=== PATIENT | female | born 1980 | race Caucasian/White ===

== ENCOUNTER 2020-10-12 08:48 | Emergency (ER) | payer OTHER ==
[2020-10-12 08:53] VITALS: BMI 26.7
[2020-10-12 11:50] LABS: BASO % 0.4 % (0-2.0); EOS % 0.7 % (0-4.5); LYMPH % 22.1 % (8-40); MCH 29.5 pg (25.7-33.7); MCHC 33.2 g/dl (32.0-36.0); MEAN CELL VOLUME 88.8 fl (80-96); MEAN PLT VOLUME 9.8 fl (7.5-11.1); MONO % 14.8 % (3.8-10.2); PLATELET COUNT 310 K/MM3 (134-434); RBC 4.05 M/mm3 (3.60-5.2); WHITE BLOOD COUNT 8.7 K/mm3 (4.0-10.0)
[2020-10-12 11:56] LABS: INR 1.08 (0.83-1.09); PROTHROMBIN TIME (PATIENT) 13.3 SEC (9.7-13.0)
[2020-10-12 11:58] LABS: ACTIVATED PTT 28.3 SECONDS (25.2-36.5)
[2020-10-12 12:16] LABS: CHLORIDE 104 mmol/L (98-107); SODIUM 137 mmol/L (136-145)
[2020-10-12 12:18] LABS: CALCIUM 9.1 mg/dL (8.5-10.1)
[2020-10-12 12:19] LABS: ALBUMIN 3.5 g/dl (3.4-5.0); BLOOD UREA NITROGEN 7.7 mg/dL (7-18); CO2 27 mmol/L (21-32); GLUCOSE,RANDOM 86 mg/dL (74-106); MAGNESIUM 2.1 mg/dL (1.8-2.4)
[2020-10-12 12:22] LABS: CREATININE 0.7 mg/dL (0.55-1.3); SGOT/AST 40 U/L (15-37); SGPT/ALT 21 U/L (13-61)
[2020-10-12 12:23] LABS: BILIRUBIN,TOTAL 0.7 mg/dL (0.2-1); TOT PROT 7.5 g/dl (6.4-8.2)
[2020-10-12 12:25] LABS: ALK PHOS 61 U/L (45-117)
[2020-10-12 12:27] LABS: N-TERMINAL BNP 8.7 pg/ml (5-125)
[2020-10-12 12:33] LABS: ANION GAP 6 MMOL/L (8-16)
[2020-10-12 15:51] LABS: LIPASE 40 U/L (73-393)
[2020-10-12] MEDS ORDERED: DEXAMETHASONE SOD PHOSPHATE 10 MG/1 ML VIAL IVPUSH ONE (15:54)
[2020-10-12] MEDS ORDERED: DEXAMETHASONE SOD PHOSPHATE 10 MG/1 ML VIAL ONE (16:00)
[2020-10-12 17:30] LABS: BLOOD UREA NITROGEN 6.4 mg/dL (7-18); CALCIUM 9.4 mg/dL (8.5-10.1)
[2020-10-12 17:33] LABS: CREATININE 0.7 mg/dL (0.55-1.3)
[2020-10-12 17:45] VITALS: BP 122/72; PULSE 108
[2020-10-12 18:52] VITALS: TEMP 98
== END 2020-10-12 19:06 | disposition short-term general hospital (02) ==
LOC: JER 08:48
PROC: 3E033GC Introduction of Other Therapeutic Substance into Peripheral Vein, Percutaneous Approach (ICD-10-PCS; principal; 2020-10-12)
DX: R22.1 Localized swelling, mass and lump, neck (principal)
CPT/HCPCS: 36415; 70498-TC; 71046-TC-FY; 71275-TC; 74174-TC; 80048; 80053; 82550; 83690; 83735; 83880; 84443; 84484; 84703; 85025; 85610; 85730; 93005; 93010; 99285-25; C9803; J1100; Q9967; U0003; U0005

== ENCOUNTER 2021-03-16 05:05 | Day surgery (SDC) | payer OTHER ==
[2021-03-13 12:03] VITALS: BMI 24.0
[2021-03-16] MEDS ORDERED: SUCCINYLCHOLINE CHLORIDE 200 MG/10 ML SYRINGE ONE (09:59)
[2021-03-16] MEDS ORDERED: PROPOFOL 20 ML ONE ×2 (10:00)
[2021-03-16] MEDS ORDERED: MIDAZOLAM HCL 2 MG/2 ML SINGLE DOSE VIAL ONE (10:00)
[2021-03-16] MEDS ORDERED: ACETAMINOPHEN 325 MG TABLET (FP) PO PRN (11:13)
[2021-03-16] MEDS ORDERED: IBUPROFEN 400 MG TABLET (FP) PO PRN (11:13)
[2021-03-16] MEDS ORDERED: oxyCODONE HCL 5 MG TABLET PO PRN (11:13)
[2021-03-16 12:02] VITALS: TEMP 97.3
[2021-03-16 12:35] VITALS: BP 140/80; PULSE 78
== END 2021-03-16 12:42 | disposition home or self-care (01) ==
LOC: JASU-SURG 05:05
PROVIDERS: ATTEND Obstetrics & Gynecology
PROC: 0UB98ZZ Excision of Uterus, Via Natural or Artificial Opening Endoscopic (ICD-10-PCS; principal; 2021-03-16 11:30)
PROC: 0UDB8ZX Extraction of Endometrium, Via Natural or Artificial Opening Endoscopic, Diagnostic (ICD-10-PCS; 2021-03-16 11:30)
DX: D25.0 Submucous leiomyoma of uterus (principal); N84.0 Polyp of corpus uteri
CPT/HCPCS: 81025; 88305-TC; 94760

== ENCOUNTER 2022-06-08 08:49 | Emergency (ER) | payer OTHER ==
[2022-06-08 08:58] VITALS: RESP 18; BMI 23.4
[2022-06-08] MEDS ORDERED: morphine CARPU-JECT 4 MG/1 ML DISP.SYRIN IVPUSH ONE (09:56)
[2022-06-08] MEDS ORDERED: ONDANSETRON 4 MG/2 ML VIAL IVPUSH ONE (09:56)
[2022-06-08] MEDS ORDERED: ONDANSETRON 4 MG/2 ML VIAL ONE (10:23)
[2022-06-08] MEDS ORDERED: morphine SULFATE 4 MG/ML VIAL ONE (10:23)
[2022-06-08] MEDS ORDERED: LACTATED RINGERS SOLUTION 1000 ML INFUS.BAG IV ONE (10:30)
[2022-06-08 10:58] LABS: EPI CELLS 4 /uL (0-25.1); HCG,QUALITATIVE URINE Negative; HYALINE CASTS 0 /uL (0-3.1); PH,URINE 8.5 (5.0-8.0); URINE APPEARANCE CLEAR; URINE BACTERIA 2472 /uL (0-1359); URINE BILIRUBIN NEGATIVE (NEGATIVE); URINE COLOR YELLOW; URINE GLUCOSE (UA) NEGATIVE (NEGATIVE); URINE KETONE TRACE (NEGATIVE); URINE LEUK ESTERASE TRACE (NEGATIVE); URINE NITRITE NEGATIVE (NEGATIVE); URINE PROTEIN NEGATIVE (NEGATIVE); URINE RBC 8 /uL (0-23.9); URINE UROBILINOGEN 0.2 mg/dL (0.2-1.0); URINE WBC 28 /uL (0-25.8)
[2022-06-08 11:06] LABS: INR 1.08 (0.83-1.09); PROTHROMBIN TIME (PATIENT) 12.4 SEC (9.7-13.0)
[2022-06-08 11:09] LABS: CALCIUM 9.7 mg/dL (8.5-10.1)
[2022-06-08 11:10] LABS: ALBUMIN 3.8 g/dl (3.4-5.0); BLOOD UREA NITROGEN 5.2 mg/dL (7-18)
[2022-06-08 11:13] LABS: CREATININE 0.7 mg/dL (0.55-1.3)
[2022-06-08 11:14] LABS: BILIRUBIN,TOTAL 0.5 mg/dL (0.2-1); TOT PROT 7.8 g/dl (6.4-8.2)
[2022-06-08 11:15] LABS: BASO % 0.2 % (0-2.0); EOS % 1.3 % (0-4.5); HEMOGLOBIN 12.2 GM/dL (10.7-15.3); LYMPH % 30.5 % (8-40); MCHC 32.2 g/dl (32.0-36.0); MEAN CELL VOLUME 86.8 fl (80-96); MEAN PLT VOLUME 9.9 fl (7.5-11.1); MONO % 11.9 % (3.8-10.2); NEUT % 56.1 % (42.8-82.8); PLATELET COUNT 330 10^3/uL (134-434); RBC 4.38 M/mm3 (3.60-5.2); RDW 13.5 % (11.6-15.6); WHITE BLOOD COUNT 6.3 K/mm3 (4.0-10.0)
[2022-06-08] MEDS ORDERED: FAMOTIDINE 20 MG/50 ML IVPB 20 MG/50 ML MG IVPB ONE ×2 (12:56→13:05)
[2022-06-08] MEDS ORDERED: CEPHALEXIN 250 MG/5 ML ORAL SUSPENSION PO ONE (12:57)
[2022-06-08] MEDS ORDERED: CEPHALEXIN MONOHYDRATE 500 MG CAPSULE (UD) ONE (13:06)
[2022-06-08] MEDS ORDERED: CEPHALEXIN MONOHYDRATE 500 MG CAPSULE (UD) PO ONE (13:06)
[2022-06-08 13:17] VITALS: BP 133/91; PULSE 108; TEMP 98.2
== END 2022-06-08 15:10 | disposition home or self-care (01) ==
LOC: JER 08:49
PROC: 3E033GC Introduction of Other Therapeutic Substance into Peripheral Vein, Percutaneous Approach (ICD-10-PCS; principal; 2022-06-08)
PROC: 3E033NZ Introduction of Analgesics, Hypnotics, Sedatives into Peripheral Vein, Percutaneous Approach (ICD-10-PCS; 2022-06-08)
PROC: 3E033GC Introduction of Other Therapeutic Substance into Peripheral Vein, Percutaneous Approach (ICD-10-PCS; 2022-06-08)
DX: R10.33 Periumbilical pain (principal)
CPT/HCPCS: 0241U-QW; 36415; 71046-TC-FY; 74177-TC; 76705-TC; 80053; 81003; 83690; 84484; 84703; 85025; 85610; 85730; 86850; 86900; 86901; 87077; 87086; 93005; 93010; 96374; 96375; 99285-25; Q9967